=== PATIENT | male | born 1980 | race Caucasian/White ===

== ENCOUNTER 2023-11-12 08:38 | Emergency (ER) | payer MEDICAID ==
[~2023-11-12] VITALS: Ht 175.3 cm; Wt 136.1 kg
[2023-11-12 10:09] VITALS: TEMP 98.3
[2023-11-12] MEDS ORDERED: predniSONE 20 MG TABLET ONE (10:40)
[2023-11-12] MEDS ORDERED: IPRATROPIUM NEB FS 0.5 MG/2.5 ML AMPUL.NEB ONE (10:41)
[2023-11-12] MEDS ORDERED: ALBUTEROL FS 2.5 MG/3 ML VIAL.NEB ONE (10:41)
[2023-11-12 10:45] VITALS: O2SAT 96
[2023-11-12] MEDS: IPRATROPIUM NEB FS 0.5 MG/2.5 ML AMPUL.NEB NEB ONE (10:45)
[2023-11-12] MEDS: ALBUTEROL FS 2.5 MG/3 ML VIAL.NEB NEB ONE (10:45)
[2023-11-12] MEDS: predniSONE 20 MG TABLET PO ONE (10:51)
[2023-11-12 10:59] VITALS: O2SAT 100
[2023-11-12 11:52] VITALS: BP 127/78; O2SAT 97
[2023-11-12] MEDS ORDERED: PRED50TA PO (13:10)
[2023-11-12] MEDS ORDERED: BENZ-13 PO (13:47)
== END 2023-11-12 13:53 | disposition home or self-care (01) ==
LOC: ER 08:40
DX: J45.901 Unspecified asthma with (acute) exacerbation (principal); J06.9 Acute upper respiratory infection, unspecified; I10 Essential (primary) hypertension; Z20.822 Contact with and (suspected) exposure to COVID-19
CPT/HCPCS: 99285; 71045; 87426; 94799; 94640; J7512